=== PATIENT | male | born 1950 | race Caucasian/White ===

== ENCOUNTER 2016-11-29 11:49 | Emergency (ER) | payer MEDICARE ==
[~2016-11-29] VITALS: Ht 180.3 cm; Wt 98.4 kg
[~2016-11-29 11:49] MED LIST: COUMADIN4 MG PO; EPI EZ PEN1 MG/ML IM; FLOMAX0.4 MG PO; HYDROCODONE BIT1 T11 PO; MEDROL DOSEPAK4 MG PO; MULTIPLE VITAMI1 CAP PO; PROZAC20 MG PO; VICODIN 5/500 505 MG PO
[2016-11-29] MEDS ORDERED: CEPHALEXIN500 M1 PO (12:51)
[2016-11-29] MEDS ORDERED: HYDROCODONE BIT1 T11 PO (12:51)
[2016-11-29 12:59] VITALS: BP 139/93
== END 2016-11-29 13:00 | disposition home or self-care (01) ==
LOC: ED 11:49
DX: S61.213A Laceration without foreign body of left middle finger without damage to nail, initial encounter (principal); Z79.01 Long term (current) use of anticoagulants; Z91.038 Other insect allergy status; Z88.2 Allergy status to sulfonamides; Z88.5 Allergy status to narcotic agent; W26.0XXA Contact with knife, initial encounter; Y93.89 Activity, other specified; Y92.89 Other specified places as the place of occurrence of the external cause; Y99.9 Unspecified external cause status

== ENCOUNTER 2019-06-11 16:21 | Emergency (ER) | payer OTHER ==
[~2019-06-11 16:21] MED LIST changes: +CEPHALEXIN500 M1 PO
[2019-06-11 16:24] VITALS: BP 141/91
== END 2019-06-11 17:00 | disposition home or self-care (01) ==
LOC: ED 16:21
DX: F32.9 Major depressive disorder, single episode, unspecified (principal); Z76.0 Encounter for issue of repeat prescription; Z91.030 Bee allergy status; Z88.2 Allergy status to sulfonamides; Z88.8 Allergy status to other drugs, medicaments and biological substances; Z79.2 Long term (current) use of antibiotics; Z79.899 Other long term (current) drug therapy; Z79.01 Long term (current) use of anticoagulants

== ENCOUNTER → 2023-05-28 | Outpatient (CLI) | payer MEDICARE ==
[~2023-05-28] MED LIST changes: +ADDERALL5 MG PO; +AMOX-CLAV 875-1 EACH PO; +BAYER ASPIRIN C81 MG PO; +CRESTOR5 M1 PO; +LUBIPROSTONE8 MCG PO; +MECLIZINE HCL25 M2 PO; +NEURONTIN300 MG PO; +NEXIUM40 MG PO; +PREDNISONE10 MG PO; +TRINTELLIX20 MG PO
== END | disposition home or self-care (01) ==
LOC: RESCLI 04:10
PROVIDERS: ATTEND Internal Medicine
DX: Z13.820 Encounter for screening for osteoporosis (principal); F98.8 Other specified behavioral and emotional disorders with onset usually occurring in childhood and adolescence; F41.9 Anxiety disorder, unspecified; F32.9 Major depressive disorder, single episode, unspecified; G25.81 Restless legs syndrome; K59.00 Constipation, unspecified; K21.9 Gastro-esophageal reflux disease without esophagitis; R42 Dizziness and giddiness; I82.90 Acute embolism and thrombosis of unspecified vein; Z88.8 Allergy status to other drugs, medicaments and biological substances; Z98.890 Other specified postprocedural states; Z79.899 Other long term (current) drug therapy

== ENCOUNTER → 2023-08-27 | Outpatient (CLI) | payer MEDICARE | END | disposition home or self-care (01) | LOC: RESCLI | PROVIDERS: ATTEND Internal Medicine | DX: F90.9 Attention-deficit hyperactivity disorder, unspecified type (principal); F41.9 Anxiety disorder, unspecified; F32.9 Major depressive disorder, single episode, unspecified; G47.00 Insomnia, unspecified; D68.51 Activated protein C resistance; G25.81 Restless legs syndrome; R42 Dizziness and giddiness; I25.10 Atherosclerotic heart disease of native coronary artery without angina pectoris; K21.9 Gastro-esophageal reflux disease without esophagitis; Z98.890 Other specified postprocedural states; Z90.49 Acquired absence of other specified parts of digestive tract; Z88.8 Allergy status to other drugs, medicaments and biological substances; Z91.030 Bee allergy status; Z79.899 Other long term (current) drug therapy ==

== ENCOUNTER → 2023-09-24 | Day surgery (SDC) | payer MEDICARE ==
[~2023-09-24] VITALS: Ht 180.3 cm; Wt 90.7 kg
[~2023-09-24] MED LIST changes: +MIRAPEX0.75 MG PO
[2023-09-24 09:40] VITALS: BP 125/86
[2023-09-24 11:23] VITALS: BP 125/74
[2023-09-24 11:38] VITALS: BP 124/83
[2023-09-24 11:53] VITALS: BP 130/81
[2023-09-24 16:34] VITALS: BP 125/74
== END | disposition home or self-care (01) ==
LOC: SDC 09-21 08:00
PROVIDERS: ATTEND Specialist
DX: H69.93 Unspecified Eustachian tube disorder, bilateral (principal); R42 Dizziness and giddiness; F90.9 Attention-deficit hyperactivity disorder, unspecified type; F41.9 Anxiety disorder, unspecified; F32.A Depression, unspecified; G47.00 Insomnia, unspecified; I25.10 Atherosclerotic heart disease of native coronary artery without angina pectoris; E78.00 Pure hypercholesterolemia, unspecified; Z90.49 Acquired absence of other specified parts of digestive tract; Z96.641 Presence of right artificial hip joint; Z79.899 Other long term (current) drug therapy

== ENCOUNTER 2023-11-06 19:56 | Emergency (ER) | payer MEDICARE ==
[~2023-11-06] VITALS: Ht 180.3 cm; Wt 94.8 kg
[2023-11-06 20:23] VITALS: BP 108/79
[2023-11-06] MEDS ORDERED: CEPHALEXIN500 M1 PO (20:58)
== END 2023-11-06 22:01 | disposition home or self-care (01) ==
LOC: ED 19:56
DX: S61.214A Laceration without foreign body of right ring finger without damage to nail, initial encounter (principal); S61.213A Laceration without foreign body of left middle finger without damage to nail, initial encounter; E78.00 Pure hypercholesterolemia, unspecified; Z91.030 Bee allergy status; Z88.2 Allergy status to sulfonamides; Z88.8 Allergy status to other drugs, medicaments and biological substances; Z90.49 Acquired absence of other specified parts of digestive tract; Z90.89 Acquired absence of other organs; Z98.890 Other specified postprocedural states; Z95.5 Presence of coronary angioplasty implant and graft; W29.8XXA Contact with other powered hand tools and household machinery, initial encounter; Y93.89 Activity, other specified; Y92.009 Unspecified place in unspecified non-institutional (private) residence as the place of occurrence of the external cause; Y99.8 Other external cause status

== ENCOUNTER → 2023-11-19 | Outpatient (CLI) | payer MEDICARE | END | disposition home or self-care (01) | LOC: RESCLI 03:37 | PROVIDERS: ATTEND Internal Medicine | DX: I25.10 Atherosclerotic heart disease of native coronary artery without angina pectoris (principal); D68.51 Activated protein C resistance; G25.81 Restless legs syndrome; F90.9 Attention-deficit hyperactivity disorder, unspecified type; F41.9 Anxiety disorder, unspecified; F32.9 Major depressive disorder, single episode, unspecified; K59.00 Constipation, unspecified; Z79.899 Other long term (current) drug therapy ==

== ENCOUNTER → 2024-01-04 | Outpatient (CLI) | payer MEDICARE | END | disposition home or self-care (01) | LOC: LAB 15:58 | PROVIDERS: ATTEND Internal Medicine Hematology & Oncology | DX: I82.409 Acute embolism and thrombosis of unspecified deep veins of unspecified lower extremity (principal) ==

== ENCOUNTER → 2024-11-22 | Outpatient (CLI) | payer MEDICARE | END | disposition home or self-care (01) | LOC: RESCLI 13:05 | PROVIDERS: ATTEND Internal Medicine | DX: H66.90 Otitis media, unspecified, unspecified ear (principal); H61.20 Impacted cerumen, unspecified ear; F90.9 Attention-deficit hyperactivity disorder, unspecified type; I25.10 Atherosclerotic heart disease of native coronary artery without angina pectoris; K59.00 Constipation, unspecified; K21.9 Gastro-esophageal reflux disease without esophagitis; F32.9 Major depressive disorder, single episode, unspecified; G25.81 Restless legs syndrome; Z79.899 Other long term (current) drug therapy; Z98.890 Other specified postprocedural states; Z88.8 Allergy status to other drugs, medicaments and biological substances ==